=== PATIENT | female | born 1990 | race Caucasian/White ===

== ENCOUNTER 2020-03-07 10:06 | Day surgery (SDC) | payer BC, OTHER ==
[2020-03-07 11:03] VITALS: BP 135/73; TEMP 98.2; BMI 47.4
[2020-03-07] MEDS ORDERED: FLU VACC QS2020-21(6MOS UP)/PF 60 MCG/0.5 ML SYRINGE IM ONE (11:15)
--- NOTE | 2020-03-07 13:35 | ULT ---
ULTRASOUND BIOPHYSICAL PROFILE: 03/07/20 HISTORY: 29-year-old female in third trimester of with chronic hypertension. FINDINGS: breathin tone: 2 movement: 2 Amniotic fluid volume: 2 lie: Vertex. heart rate: 123 bpm. LICHA: 15.5. Placenta: Left posterior. No previa. IMPRESSION: Normal biophysical profile score of 8/8, excluding the non-stress test. jn [] POS: JIN
== END 2020-03-07 12:30 | disposition home or self-care (01) ==
LOC: L&D/OP 10:06
PROVIDERS: ATTEND Obstetrics & Gynecology
DX: O10.913 Unspecified pre-existing hypertension complicating pregnancy, third trimester (principal); Z3A.00 Weeks of gestation of pregnancy not specified; Z91.040 Latex allergy status
CPT/HCPCS: 76819; 99282

== ENCOUNTER 2020-03-14 09:59 | Day surgery (SDC) | payer BC, OTHER ==
[2020-03-14 10:36] VITALS: BP 132/78; TEMP 98.8
--- NOTE | 2020-03-14 11:43 | ULT ---
EXAM: US Biophysical Profile PROVIDED CLINICAL HISTORY: Intrauterine gestation. Chronic hypertension. COMPARISON: 03/07/2020 FINDINGS: Again noted is evidence of a single intrauterine gestation in cephalic presentation. Cardiac Doppler demonstrates heart tones with a heart rate of 152 bpm. Amniotic fluid index measures 12.8 cm and previously measured 15.5 cm. The placenta is located posteriorly without evidence of plac enta previa. biophysical profile score of 2 was obtained each for tone, breathing, movemen ts, and amniotic fluid volume. IMPRESSION: 1. Single intrauterine gestation in cephalic presentation with heart tones documented. 2. Total biophysical profile score of 8 out of 8 is obtained, excluding the nonstress test. 3. Amniotic fluid index measures 12.8 cm and previously measured 15.5 cm.
--- NOTE | 2020-03-14 13:11 | PRG ---
DATE OF SERVICE: 03/14/2020 Biophysical Profile Note In brief, this patient is a patient of Dr. Flores and was sent to Labor and Delivery for performance of a biophysical profile, which was done by the pharmacy intake technician and the monitors were placed by Apurva, the patient's nurse. I reviewed the case with Apurva. She stated that this did not require my in-person evaluation, but just wanted to "sign off" on the BPP. The BPP was 8/8 and the nonstress test was reactive, making the total score of 10/10. This patient was sent for a diagnosis of hypertensive disorders of , but there is no evidence of severe criteria at this point. I have not seen the patient personally, but just reviewed the biophysical profile and the strip. Job ID: [id number]
[2020-03-15] MEDS ORDERED: FLU VACC QS2020-21(6MOS UP)/PF 60 MCG/0.5 ML SYRINGE IM ONE (10:45)
== END 2020-03-14 12:35 | disposition home or self-care (01) ==
LOC: L&D/OP 09:59
PROVIDERS: ATTEND Obstetrics & Gynecology
DX: O10.913 Unspecified pre-existing hypertension complicating pregnancy, third trimester (principal); Z3A.36 36 weeks gestation of pregnancy; Z91.040 Latex allergy status
CPT/HCPCS: 76819; 99282

== ENCOUNTER 2020-03-22 09:57 | Outpatient (CLI) | payer BC, OTHER ==
[2020-03-23 15:48] LABS: SARS-CoV-2 PCR by NAA DETECTED (NotDetected)
== END 2020-03-22 09:58 | disposition home or self-care (01) ==
LOC: LABBT 09:57
PROVIDERS: ATTEND Obstetrics & Gynecology
DX: U07.1 COVID-19 (principal)
CPT/HCPCS: 87635; U0003; U0005

== ENCOUNTER 2020-03-27 10:11 | Inpatient (IN) | payer BC, OTHER ==
[2020-03-27] MEDS ORDERED: Famotidine/PF 20 mg/2ml Vial SLOW IVP PRN (10:42)
[2020-03-27] MEDS ORDERED: Bicitra 30 ML UDCUP PO PRN (10:42)
[2020-03-27] MEDS ORDERED: Promethazine HCl 25 MG/ML VIAL IM PRN ×4 (10:42→19:08)
[2020-03-27] MEDS ORDERED: hydrALAZINE 20 MG/ML VIAL SLOW IVP PRN ×2 (10:42→19:08)
[2020-03-27] MEDS ORDERED: Ondansetron PF 4 MG/2 ML Vial IVP PRN ×4 (10:42→19:08)
[2020-03-27] MEDS ORDERED: CEFAZOLIN 2 GM in Premix Bag 1 BAG IVPB SCH (10:45)
[2020-03-27] MEDS ORDERED: Lactated Ringer's 1,000 ML IV SCH (10:45)
--- NOTE | 2020-03-27 10:49 | PDOC.LDHP ---
Labor and Delivery H&P HPI: 29 y/o at 38 and 5/7 weeks for repeat 3rd . Patient was COVID positive on 03/04/20, now recovered without symptoms. She reports a hx of benign back tumor with partial resection, and therefor previous general anesthesia x2 for her previous 2 c-sections. She requests general anesthesia again today for the same reason. She also has CHTN, and morbid obesity. Current gestational age (weeks): 38 Due date: 04/05/20 Grav: 3 Para: 2 Current complications: hypertension, other Abnormal US findings: No Current medications: pre- vitamins Previous surgical history: low tranverse CS Allergies/Adverse Reactions: Allergies Allergy/AdvReac Type Severity Reaction Status Date / Time latex Allergy Mild Rash Verified 03/07/20 10:59 Social history: none - Physical Exam Vital signs reviewed and normal: yes General: NAD Heart: RRR Lungs: CTAB Abdomen: gravid Extremeties: no edema FHT: category 1 - Assessment L&D Assessment: scheduled repeat section - Plan Plan: admit to L&D, to OR for section
[2020-03-27] MEDS ORDERED: SUGAMMADEX SODIUM 200 MG/2 ML VIAL ONE (10:57)
[2020-03-27] MEDS ORDERED: Famotidine/PF 20 mg/2ml Vial ONE (10:57)
[2020-03-27] MEDS ORDERED: Fentanyl 100 MCG/2 ML VIAL ONE ×2 (11:18→13:42)
[2020-03-27] MEDS ORDERED: Phenylephrine 40 MG/NS 250 ML 250 ML ONE (11:23)
[2020-03-27 11:31] VITALS: BMI 48.5
[2020-03-27] MEDS ORDERED: Oxytocin 10 UNITS/ML VIAL ONE ×2 (11:32→12:49)
[2020-03-27 11:49] LABS: Hemoglobin 13.4 g/dL (12.0-16.0); Mean Corpuscular HGB CONC 33.3 g/dL (32.0-36.0); Mean Corpuscular Hemoglobin 28.8 pg (27.0-31.0); Mean Corpuscular Volume 86.3 fL (78.0-98.0); Mean Platelet Volume 7.9 fL (7.4-10.4); Platelet Count 296 thou/uL (130-400); RBC Distribution Width 13.5 % (11.5-14.5); Red Blood Cell (RBC) Count 4.66 mill/uL (4.20-5.40); White Blood Cell (WBC) Count 8.7 thou/uL (4.8-10.8)
[2020-03-27 12:29] LABS: HBSAg Index 0.17 S/CO (0-0.99); Hep B Surf Ag Non-Reactive S/CO (NonReactive); Syphilis Antibody Nonreactive (Nonreactive); Syphilis Antibody Index 0.05 S/CO (<1.00 Non-Reactive)
[2020-03-27] MEDS ORDERED: FLU VACC QS2020-21(6MOS UP)/PF 60 MCG/0.5 ML SYRINGE IM ONE (12:45)
[2020-03-27] MEDS ORDERED: Naloxone HCl 0.4 mg/ml Vial IVP PRN ×2 (13:00)
[2020-03-27] MEDS ORDERED: Naloxone HCl 0.4 mg/ml Vial IV PRN ×2 (13:00)
[2020-03-27] MEDS ORDERED: Promethazine HCl 25 MG SUPP PR PRN (13:00)
[2020-03-27] MEDS ORDERED: Ondansetron HCl/PF 4 MG/2 ML Vial IVP PRN (13:00)
[2020-03-27] MEDS ORDERED: diphenhydrAMINE 50 MG/ML VIAL IVP PRN ×2 (13:00)
[2020-03-27] MEDS ORDERED: diphenhydrAMINE 50 MG/ML VIAL IM PRN (13:00)
[2020-03-27] MEDS ORDERED: diphenhydrAMINE 25 MG CAP PO PRN ×2 (13:00→19:08)
[2020-03-27] MEDS ORDERED: fentaNYL Citrate/PF 2,000 MCG in Sodium Chloride 0.9% 60 ML IV PRN (13:00)
[2020-03-27] MEDS ORDERED: Zolpidem Tartrate 5 MG TAB PO PRN ×2 (13:00→19:08)
[2020-03-27] MEDS ORDERED: Meperidine HCl/PF 25 MG/ML VIAL SLOW IVP PRN (13:00)
[2020-03-27] MEDS ORDERED: Communication Order-Pharmacy FS SCH ×2 (13:00)
[2020-03-27] MEDS ORDERED: Meperidine HCl/PF 25 MG/ML VIAL ONE (13:11)
[2020-03-27] MEDS ORDERED: hydrALAZINE 20 MG/ML VIAL ONE (14:36)
[2020-03-27] MEDS ORDERED: Metoprolol Tartrate 5 MG/5 ML VIAL ONE (14:36)
[2020-03-27] MEDS ORDERED: Labetalol HCl 100 MG/20 ML VIAL ONE (14:38)
[2020-03-27] MEDS ORDERED: Labetalol HCl 100 MG/20 ML VIAL IVPB SCH (15:15)
[2020-03-27] MEDS ORDERED: Ketorolac Tromethamine 30 MG/ML VIAL IVP PRN (19:00)
[2020-03-27] MEDS: Ketorolac Tromethamine 30 MG/ML VIAL IVP PRN (19:08)
[2020-03-27] MEDS ORDERED: Bisacodyl 10 MG SUPP PR PRN (19:08)
[2020-03-27] MEDS ORDERED: NS / Oxytocin 40 units/1000ml 1,000 ML IV SCH (19:15)
[2020-03-27] MEDS: Enoxaparin Sodium 40 MG/0.4 ML SYRINGE SC SCH (21:30)
[2020-03-27] MEDS: Docusate Calcium (SURFAK) 240 MG CAP PO SCH (21:30)
[2020-03-28] MEDS: Simethicone Chewable 80 MG TAB PO PRN ×2 (01:00→09:20)
[2020-03-28] MEDS: Ketorolac Tromethamine 30 MG/ML VIAL IVP PRN ×2 (01:00→07:12)
[2020-03-28 06:24] LABS: Hemoglobin 10.9 g/dL (12.0-16.0); Mean Corpuscular HGB CONC 33.4 g/dL (32.0-36.0); Mean Corpuscular Hemoglobin 28.5 pg (27.0-31.0); Mean Corpuscular Volume 85.3 fL (78.0-98.0); Mean Platelet Volume 7.6 fL (7.4-10.4); Platelet Count 318 thou/uL (130-400); RBC Distribution Width 13.5 % (11.5-14.5); Red Blood Cell (RBC) Count 3.82 mill/uL (4.20-5.40); White Blood Cell (WBC) Count 12.6 thou/uL (4.8-10.8)
[2020-03-28] MEDS ORDERED: Measles/Mumps/Rubella 10 MCG/0.5 ML VIAL SC ONE (09:00)
[2020-03-28] MEDS ORDERED: Adacel (T-DAP) 0.5 ML SYRINGE IM ONE (09:00)
[2020-03-28] MEDS ORDERED: Varicella virus, LIVE 0.5 ML VIAL SC ONE (09:00)
[2020-03-28] MEDS: Docusate Calcium (SURFAK) 240 MG CAP PO SCH ×2 (09:20→21:18)
[2020-03-28] MEDS: Prenatal Vitamin 1 TAB PO SCH (09:20)
[2020-03-28] MEDS: HYDROcodone/Acetaminophen 5/325 mg Tablet PO PRN ×2 (11:16→17:04)
[2020-03-28] MEDS: Ibuprofen 800 MG TAB PO SCH ×2 (14:00→21:18)
--- NOTE | 2020-03-28 14:05 | PDOC.PP ---
Post Progress Note Post Day #: 1 PO intake tolerated: yes Flatus: yes Ambulation: yes Vital Signs (12 hours) Temp Pulse Resp BP Pulse Ox 03/28/20 11:45 98.7 F 84 20 133/76 98 03/28/20 08:21 98.8 F 90 20 126/67 96 03/28/20 06:06 18 Weight Weight 257 lb - Physical Examination General: NAD Cardiovascular: no m/r/g, RRR Respiratory: clear to auscultation bilaterally, non-labored breathing Abdominal: + bowel sounds, lochia, no distention, appropriately TTP Extremities: negative homans (B) Skin: CS incision dry & intact, no rash Neurological: no gross focal deficits Psychiatric: A&Ox3, normal affect Result Diagrams: 03/28/20 05:58 Additional Labs: Post Labs Hep Bs Antigen Non-Reactive S/CO (NonReactive) 03/27/20 11:34 Blood Type A POSITIVE 03/27/20 11:34
--- NOTE | 2020-03-28 14:06 | OP ---
DATE OF PROCEDURE: 03/27/2020 TIME: 12:37 Central Standard Time. PREOPERATIVE DIAGNOSES: Intrauterine at 38 weeks and 6 days with a repeat 3rd section and chronic hypertension as well as morbid obesity. POSTOPERATIVE DIAGNOSES: Intrauterine at 38 weeks and 6 days with a repeat 3rd section and chronic hypertension as well as morbid obesity. PROCEDURE PERFORMED: Repeat 3rd low-transverse section. FINDINGS: Viable male infant weighing 3711 g or 8 pounds 3 ounces with Apgars of 8 and 9. ESTIMATED BLOOD LOSS: 423 mL. COMPLICATIONS: None. DETAILS OF THE PROCEDURE: The patient was consented and taken back to the operating room where spinal anesthesia was found to be adequate. She was then prepped and draped in the normal sterile fashion. A timeout was performed by the entire operative team. The incision was then marked with a marking pen tested using sharp pickups. An incision was then made with a scalpel. The incision was carried through the adipose tissue down to the underlying rectus fascia using both sharp dissection as well as cautery. Once the fascia was identified, it was incised in the midline and then the fascial incision was carried through in both lateral directions using sharp as well as cautery dissection techniques. Next, the superior aspect of the rectus fascia was grasped with 2 Iker clamps, which was tented up and the rectus muscles were dissected off using blunt dissection as well as cautery dissection. Similarly, the inferior aspect of the fascial incision was grasped with 2 Iker clamps, tented up and the rectus muscles were dissected off bluntly as well as sharply. Next, the rectus muscles were in the midline and the peritoneum identified. The peritoneum was then carefully grasped with 2 hemostats and entered sharply. The peritoneal incision was extended superiorly and inferiorly and bladder blade was placed in the lower abdomen. At this point, the uterus was identified and the bladder flap was then developed using pickups with teeth as well as Metzenbaum scissors in both lateral directions. The bladder flap was then dissected downwards using the cutter grinder operator's finger as well as Metzenbaum scissors. The bladder blade was replaced. The lower uterine segment was then identified and entered sharply using a clean scalpel. The uterine incision was then dissected downwards until thin layer of muscle remained and this was entered bluntly using a hemostat to avoid any injury to the baby. The uterine incision was then stretched using two fingers in both lateral directions. An amniotomy was performed artificially using a hemostat and the baby was delivered using fundal pressure in a gentle fashion. Once out, the baby's mouth and nose were bulb suctioned, cord clamped and cut, and the baby was handed to waiting attendants. Next, the uterus was exteriorized, cleared of all clots and debris and the uterine incision was repaired with #1 Monocryl in a running locking fashion. A 2nd suture of the same type was used to obtain complete hemostasis at the uterine incision. The bladder flap was reapproximated using 3-0 Monocryl. Next, patient's left and right adnexa were inspected and appeared to be within normal limits. The posterior cul-de-sac was blotted dry and hemostasis assured. One more look at the uterine incision demonstrated hemostasis. Next, the uterus was replaced back within the abdomen. The peritoneum was reapproximated using 2-0 Monocryl without difficulty. The rectus muscles were then allowed to come back together and 0 chromic was used to aid in reapproximation of the muscle as necessary. The rectus fascia was then reapproximated in a running fashion using 0 Vicryl suture. The adipose tissue was then examined and appeared to be well approximated without any obvious separations. Finally, the skin was reapproximated with 3-0 Monocryl on a Preston needle without difficulty and Dermabond adhesive was applied to the skin. Once the glue was dry, the drapes were removed and the patient was transferred to an ambulatory bed where she was taken to recovery awake and in stable condition. Sponge, lap, and needle counts were correct x3. Job ID: [id number]
[2020-03-28] MEDS: Enoxaparin Sodium 40 MG/0.4 ML SYRINGE SC SCH (21:19)
[2020-03-29] MEDS: HYDROcodone/Acetaminophen 5/325 mg Tablet PO PRN ×4 (00:18→14:35)
[2020-03-29] MEDS: Ibuprofen 800 MG TAB PO SCH ×2 (06:01→13:49)
[2020-03-29] MEDS: Simethicone Chewable 80 MG TAB PO PRN ×2 (09:06→14:35)
[2020-03-29] MEDS: Prenatal Vitamin 1 TAB PO SCH (09:06)
[2020-03-29] MEDS: Docusate Calcium (SURFAK) 240 MG CAP PO SCH (09:06)
--- NOTE | 2020-03-29 11:52 | PDOC.PP ---
Post Progress Note Post Day #: 2 PO intake tolerated: yes Flatus: yes Ambulation: yes Vital Signs (12 hours) Temp Pulse Resp BP Pulse Ox 03/29/20 08:07 97.9 F 80 20 129/73 97 03/29/20 00:20 98.6 F 80 20 143/83 H Weight Weight 257 lb - Physical Examination General: NAD Cardiovascular: no m/r/g, RRR Respiratory: clear to auscultation bilaterally Abdominal: + bowel sounds, lochia Extremities: negative homans (B) Skin: CS incision dry & intact, no rash Neurological: no gross focal deficits Psychiatric: A&Ox3, normal affect Result Diagrams: 03/28/20 05:58 Additional Labs: Post Labs Hep Bs Antigen Non-Reactive S/CO (NonReactive) 03/27/20 11:34 Blood Type A POSITIVE 03/27/20 11:34
[2020-03-29 12:00] VITALS: BP 135/64; TEMP 98.5
== END 2020-03-29 15:00 | disposition home or self-care (01) | DRG 787 ==
LOC: L&D 10:11 → 3SW 17:45
PROVIDERS: ADMIT Obstetrics & Gynecology; ATTEND Obstetrics & Gynecology
PROC: 10D00Z1 Extraction of Products of Conception, Low, Open Approach (ICD-10-PCS; principal; 2020-03-27)
DX: O34.211 Maternal care for low transverse scar from previous cesarean delivery (principal); O10.92 Unspecified pre-existing hypertension complicating childbirth; O99.214 Obesity complicating childbirth; E66.01 Morbid (severe) obesity due to excess calories; Z91.040 Latex allergy status; Z3A.38 38 weeks gestation of pregnancy; Z37.0 Single live birth; Z86.16 Personal history of COVID-19
CPT/HCPCS: 36415; 51702; 85027; 86780; 86850; 86900; 86901; 87340; J0360; J1650; J1885; J2175; J3010; J3490; Q0163; S0028